=== PATIENT | male | born 1985 | race African-American/Black ===

== ENCOUNTER 2017-03-09 11:23 | Emergency (ER) | payer MEDICAID, OTHER ==
[~2017-03-09] VITALS: Ht 165.1 cm; Wt 72.5 kg
[~2017-03-09 11:23] MED LIST: PRED20 PO; QUEN12.5 PO
[2017-03-09 11:26] VITALS: BP 157/88; PULSE 73; RESP 18; TEMP 98.1; O2SAT 98
--- NOTE | 2017-03-09 11:35 | PD ---
Physical Exam Time Seen by Provider: 11:33 Narrative 31yo M c/o R eye pain, swelling, redness since or Wednesday after a lobster spit in his eye. Occasional blurred vision. Denies fever, vomiting. VS reviewed. Patient seen in triage. Awaiting bed placement. Data Data Last Documented VS Vital Signs Date Time Temp Pulse Resp B/P Pulse Ox O2 Delivery O2 Flow Rate FiO2 03/09/17 11:26 98.1 73 18 157/88 98 MDM Supervised Visit with EVETTE: Maribel Huertas March 09, 2017 11:35
--- NOTE | 2017-03-09 12:03 | PD ---
HPI . right eye infection Chief Complaint: Eye Problems/Injury Time Seen by Provider: 12:03 Travel History International Travel<30 days: No Contact w/Intl Traveler<30days: No Traveled to known affect area: No History of Present Illness HPI 31-year-old male with no past medical history here with complaints of right eye redness and drainage. Patient says that he was killing a lobster when it spit into his eye. He says that he developed redness and irritation since. He was told by his employer that he needs to come for treatment as this occurred while at work. He admits to blurry vision secondary to drainage, but says otherwise vision is unaffected. He denies any pain. Patient tells me this is not a Worker's Compensation case as he smokes marijuana as like to have this taken care of on his own. PFSH Past Medical History Immunizations Current: No Social History Alcohol Use: No Tobacco Use: Yes (11/02 PPD ) Substance Use: No Allergies-Medications (Allergen,Severity, Reaction): Coded Allergies: No Known Allergies (Unverified , 03/09/17) Reported Meds & Prescriptions Reported Meds & Active Scripts Active Ciprofloxacin Opth Drops (Ciprofloxacin HCl) 0.3% Soln 2 Drop EACH EYE Q4H 5 Days while awake x 5 days. Review of Systems General / Constitutional: No: Fever Eyes: Positive: Drainage, Redness, Tearing, No: Visual changes HENT: No: Headaches Cardiovascular: No: Chest Pain or Discomfort Respiratory: No: Shortness of Breath Gastrointestinal: No: Abdominal Pain Genitourinary: No: Dysuria Musculoskeletal: No: Pain Skin: No Rash Neurologic: No: Weakness Psychiatric: No: Depression Endocrine: No: Polydipsia Hematologic/Lymphatic: No: Easy Bruising Physical Exam Narrative GENERAL: AAO x 3, no acute distress, Well-nourished, well-developed patient. SKIN: Warm and dry. No visible rashes or bruising. HEAD: Normocephalic and atraumatic. EYES: No scleral icterus.EOM intact, PERRLA. Right eye checked and no visible foreign body. Eyelid everted and no foreign body. eye staining without any corneal abrasion, + right eye erythema and injection. clear drainage on examination. ENT: No nasal drainage noted. Mucous membranes pink. Airway patent. NECK: Supple, trachea midline. No JVD. CARDIOVASCULAR: Regular rate and rhythm without murmurs, gallops, or rubs. RESPIRATORY: Breath sounds equal bilaterally. No accessory muscle use. No rhonchi or rales. GASTROINTESTINAL: visual inspection normal EXTREMITIES: No cyanosis or edema. BACK: Nontender without obvious deformity. No CVA tenderness. PSYCH: AAO x 3, normal affect. Data Data Last Documented VS Vital Signs Date Time Temp Pulse Resp B/P Pulse Ox O2 Delivery O2 Flow Rate FiO2 03/09/17 11:26 98.1 73 18 157/88 98 MDM Medical Decision Making Medical Screen Exam Complete: Yes Emergency Medical Condition: Yes Medical Record Reviewed: Yes Differential Diagnosis Conjunctivitis, less likely chemical burn, less likely foreign body Narrative Course 31-year-old male with no past medical history here with complaints of right eye redness and drainage. Patient says that he was killing a lobster when it spit into his eye. He says that he developed redness and irritation since. He was told by his employer that he needs to come for treatment as this occurred while at work. He admits to blurry vision secondary to drainage, but says otherwise vision is unaffected. He denies any pain. Patient tells me this is not a Worker's Compensation case as he smokes marijuana as like to have this taken care of on his own. Patient seen and examined. He appears to have conjunctivitis of his right eye. There were no fb or corneal abrasion on examination. I will go ahead and treat him with some antibiotics eye drops. I've advised him that he will need to see an deputy prosecuting attorney within the next several days. Patient verbalized understanding of instructions, questions were answered, and thanked me for their care. I advised them if their condition worsens, please return to the nearest emergency room for further care. Procedures Procedure Narrative Fluorescein eye staining procedure: Right eye proparacaine drops instilled into the right eye Local anesthesia was accomplished. the eye was inspected for any type of obvious foreign body: None found fluorescein stain was applied to look for corneal abrasion: None found Diagnosis Primary Impression: Conjunctivitis Qualified Code: H10.31 - Acute conjunctivitis of right eye, unspecified acute conjunctivitis type Referrals: [facility] Patient Instructions: General Instructions Additional Instructions: Please follow up with an deputy prosecuting attorney in the next 2-3 days. Please return to emergency department if your symptoms return or worsen. Follow up with your primary care provider. Take medications as prescribed. Med/Other Pt SpecificInfo: Prescription(s) given Scripts Ciprofloxacin Opth Drops 0.3% Soln2 Drop EACH EYE Q4H 5 Days Ref 0 while awake x 5 days. Prov:Jonathan Waldron MD 03/09/17 Disposition: 01 DISCHARGE HOME Condition: Stable Krystin Briceno March 09, 2017 12:03 Krystin Briceno March 09, 2017 12:03
[2017-03-09] MEDS ORDERED: CIPR0.3S2 EACH EYE (12:11)
== END 2017-03-09 12:41 | disposition home or self-care (01) ==
LOC: NEPK 11:23
DX: H10.31 Unspecified acute conjunctivitis, right eye (principal); F17.210 Nicotine dependence, cigarettes, uncomplicated; W56.89XA Other contact with other nonvenomous marine animals, initial encounter; Y93.89 Activity, other specified; Y92.9 Unspecified place or not applicable; Y99.0 Civilian activity done for income or pay
CPT/HCPCS: 99282

== ENCOUNTER 2017-05-06 09:00 | Emergency (ER) | payer SELFPAY ==
[~2017-05-06] VITALS: Ht 170.2 cm; Wt 67.0 kg
[~2017-05-06 09:00] MED LIST changes: +CIPR0.3S2 EACH EYE; -PRED20 PO; -QUEN12.5 PO
[2017-05-06 09:02] VITALS: BP 137/80; PULSE 94; RESP 20; TEMP 98.7; O2SAT 98
[2017-05-06 09:41] VITALS: BP 139/63; PULSE 82; RESP 18; O2SAT 98
[2017-05-06 09:41] LABS: BACTERIA, URINE RARE /hpf; BLOOD, URINE SMALL (NEG); COMMENT (UR) CULTURE INDICATED; CULTURE IF INDICATED CULTURE INDICATED; GLUCOSE,URINE NEG (NEG); KETONE, URINE NEG (NEG); MUCUS URINE FEW /lpf (OCC); NITRITE,URINE NEG (NEG); SQUAMOUS EPITHELIAL CELL URINE <1 /hpf (0-5); URINE COLOR YELLOW (YELLW/STRAW)
[2017-05-06] MEDS ORDERED: AZITHROMYCIN PWD FOR SUSP 1 GM PACKET PO ONE (10:30)
[2017-05-06] MEDS ORDERED: cefTRIAXone INJ 1,000 MG in SODIUM CHLORIDE 0.9% INJ 100 ML IV ONE (10:30)
--- NOTE | 2017-05-06 10:50 | PD ---
HPI Chief Complaint: Complaint Time Seen by Provider: 09:55 Travel History International Travel<30 days: No Contact w/Intl Traveler<30days: No Traveled to known affect area: No History of Present Illness HPI This patient complains of urethral discharge and burning when he urinates. No fever. Symptoms severity is moderate. PFSH Past Medical History Medical History: Denies Significant Hx Immunizations Current: Yes Influenza Vaccination: No Past Surgical History Surgical History: No Previous Surgery Social History Alcohol Use: No Tobacco Use: Yes (1/2 PPD ) Substance Use: No (MARIJUANA) Allergies-Medications (Allergen,Severity, Reaction): Coded Allergies: Raspberry (Verified Allergy, Intermediate, RASH, 05/06/17) Reported Meds & Prescriptions Reported Meds & Active Scripts Active No Active Prescriptions or Reported Medications Review of Systems HENT: No: Headaches Cardiovascular: No: Chest Pain or Discomfort Respiratory: No: Cough Physical Exam Narrative GASTROINTESTINAL: Abdomen soft, non-tender, nondistended. Positive bowel sounds. No hepato-splenomegaly, or palpable masses. No guarding. : Circumcised penis without lesions. Has bilateral inguinal lymphadenopathy SKIN: Focused skin assessment reveals no rash or ulcers. Skin is warm and dry. Palpation shows no induration or nodules. Psych: Normal mood and affect. Normal insight and judgment. Data Data Last Documented VS Vital Signs Date Time Temp Pulse Resp B/P Pulse Ox O2 Delivery O2 Flow Rate FiO2 05/06/17 09:41 82 18 139/63 98 Room Air 05/06/17 09:02 98.7 Orders Urinalysis - C+S If Indicated (05/06/17 09:13) Urine Culture (05/06/17 09:20) Ceftriaxone Inj (Rocephin Inj) (05/06/17 10:30) Azithromycin Powd Pack (Zithromax Powd P (05/06/17 10:30) Labs Laboratory Tests Test 05/06/17 09:20 Urine Color YELLOW Urine Turbidity HAZY Urine pH 6.0 Urine Specific [place] 1.042 Urine Protein 30 mg/dL Urine Glucose (UA) NEG mg/dL Urine Ketones NEG mg/dL Urine Occult Blood SMALL Urine Nitrite NEG Urine Bilirubin NEG Urine Urobilinogen 2.0 MG/DL Urine Leukocyte Esterase LARGE Urine RBC 24 /hpf Urine WBC /hpf Urine Squamous Epithelial <1 /hpf Cells Urine Bacteria RARE /hpf Urine Mucus FEW /lpf Microscopic Urinalysis Comment CULTURE INDICATED MDM Medical Decision Making Medical Screen Exam Complete: Yes Emergency Medical Condition: Yes Medical Record Reviewed: Yes Differential Diagnosis Urethritis, cystitis, pyelonephritis Narrative Course I have reviewed the patient's electronic medical record. Presentation seems consistent with urethritis given his discharge and pyuria and inguinal lymphadenopathy There are no visible lesions His urine shows innumerable white cells and will be sent for culture I gave him IV Rocephin 1 g I gave him 2 g oral Zithromax He should follow-up with primary care physician for further STD evaluation He does have history of STD per His report Diagnosis Primary Impression: Urethritis, unspecified Additional Impression: Pyuria Additional Instructions: The patient was advised to follow up with their physician and return if they worsen. Med/Other Pt SpecificInfo: Other Scripts No Active Prescriptions or Reported Meds Disposition: 01 DISCHARGE HOME Condition: Stable Harinder Whitfield MD May 06, 2017 10:50
== END 2017-05-06 12:01 | disposition home or self-care (01) ==
LOC: NEPD 09:00
DX: N34.2 Other urethritis (principal)
CPT/HCPCS: 81001; 87086; 96365; 99284; J0696

== ENCOUNTER 2017-07-13 10:33 | Emergency (ER) | payer OTHER ==
[~2017-07-13] VITALS: Ht 165.1 cm; Wt 68.0 kg
[2017-07-13 10:35] VITALS: BP 145/88; PULSE 104; RESP 16; TEMP 98.4; O2SAT 98
[2017-07-13] MEDS ORDERED: ROBA500T PO (11:14)
[2017-07-13] MEDS ORDERED: IBUP800T23 PO (11:14)
[2017-07-13] MEDS ORDERED: IBUPROFEN 800 MG TAB PO ONE (11:15)
[2017-07-13] MEDS ORDERED: METHOCARBAMOL 500 MG TAB PO ONE (11:15)
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
[2017-07-13] MEDS ORDERED: METHOCARBAMOL 500 MG TAB ONE (11:18)
[2017-07-13] MEDS ORDERED: IBUPROFEN 800 MG TAB ONE (11:18)
== END 2017-07-13 11:31 | disposition home or self-care (01) ==
LOC: NETRI 10:33 → EDTENT 11:31
DX: S16.1XXA Strain of muscle, fascia and tendon at neck level, initial encounter (principal); S39.012A Strain of muscle, fascia and tendon of lower back, initial encounter; V43.52XA Car driver injured in collision with other type car in traffic accident, initial encounter; Y92.414 Local residential or business street as the place of occurrence of the external cause
CPT/HCPCS: 99283